=== PATIENT | male | born 1990 | race Caucasian/White ===

== ENCOUNTER 2016-07-12 17:03 | Emergency (ER) | payer MEDICAID ==
[~2016-07-12] VITALS: Ht 180.3 cm; Wt 77.1 kg
[2016-07-12] MEDS ORDERED: IV NS 0.9% 1,000 ML ONE ×2 (17:37→18:13)
[2016-07-12] MEDS ORDERED: LORAZEPAM INJ 2 MG/ML VIAL ONE (17:38)
[2016-07-12 17:47] LABS: BASOPHILS # (AUTO) 0.1 /CMM (0.0-0.2); BASOPHILS % (AUTO) 0.7 % (0.0-2.0); DIFF TOTAL % 100 %; EOSINOPHILS % (AUTO) 0.1 % (0.0-6.0); HEMATOCRIT 49 % (39-51); LYMPHOCYTES # (AUTO) 2.7 /CMM (0.8-4.8); LYMPHOCYTES % (AUTO) 28.4 % (20.0-44.0); MEAN CORPUSCULAR HEMOGLOBIN 32 PG (26.0-33.0); MEAN CORPUSCULAR HGB CONC 35 g/dl (31.0-36.0); MEAN CORPUSCULAR VOLUME 92 fL (80-96); MONOCYTES # (AUTO) 0.2 /CMM (0.1-1.30); MONOCYTES % (AUTO) 2.5 % (2.0-12.0); NEUTROPHILS # (AUTO) 6.7 /CMM (1.8-8.9); NEUTROPHILS % (AUTO) 68.3 % (43.0-81.0); PLATELET COUNT (AUTO) 337 /CMM (150-450); RED BLOOD CELL COUNT(AUTO) 5.35 MIL/uL (4.5-6.0); WHITE BLOOD COUNT (AUTO) 9.7 K/uL (4.3-11.0)
[2016-07-12 17:54] LABS: CALCIUM, SERUM 8.5 mg/dL (8.5-10.1); CREATININE 1.2 mg/dL (0.6-1.3); POTASSIUM 3.7 mmol/L (3.5-5.1)
[2016-07-12 18:00] LABS: ALBUMIN 4.1 g/dL (3.4-5.0); BILIRUBIN,DIRECT 0.1 mg/dL (0.0-0.2); BILIRUBIN,TOTAL 0.3 mg/dL (0.2-1.0); INDIRECT BILIRUBIN 0.2 mg/dL (0.0-1.1)
[2016-07-12] MEDS ORDERED: IV NS 0.9% 1,000 ML BAG IV ONE ×2 (18:00→18:30)
[2016-07-12] MEDS ORDERED: LORAZEPAM INJ 2 MG/ML VIAL IV ONE (18:00)
[2016-07-12 19:06] VITALS: BP 111/81
== END 2016-07-12 19:07 | disposition home or self-care (01) ==
LOC: ER 17:04
DX: F10.10 Alcohol abuse, uncomplicated (principal); Z72.0 Tobacco use
CPT/HCPCS: 36415; 80048; 80076; 83690; 83735; 85025; 96361; 96374; 99284; A4606; G0480; J2060; J7030 ×2; Z7610